=== PATIENT | male | born 1945 | race African-American/Black ===

== ENCOUNTER 2016-10-02 12:14 | Inpatient (IN) | payer MEDICARE, OTHER ==
[~2016-10-02] VITALS: Ht 182.9 cm; Wt 79.0 kg
[~2016-10-02 12:14] MED LIST: CLOP75 PO; COMP10 PO; GABA-531 PO; ISOS30TA6 PO; MEMA10TA11 PO; METF500T4 PO; METO-323 PO; MULT1CAP32 PO; OMEP20 PO; OXCA300T PO; PERCT PO; PRAV40 PO; RAMI2.5 PO; RANO500T3 PO; SENN1TAB PO
[2016-10-02 12:40] LABS: GLUCOSE,POINT OF CARE 118 MG/DL (70-110)
[2016-10-02] MEDS ORDERED: MORPHINE SULFATE 4 MG/ML SYRINGE IVP ONE (12:45)
[2016-10-02 13:16] LABS: HEMOGLOBIN 7.8 g/dL (13.5-17.5); MEAN CORPUSCULAR HEMOGLOBIN 20.5 pg (26.0-34.0); MEAN CORPUSCULAR VOLUME 68 fL (80-100); PLATELET COUNT (AUTO) 479 K/uL (150-450); RED CELL DISTRIBUTION WIDTH 24.1 % (11.5-14.5); WHITE BLOOD COUNT (AUTO) 7.4 K/uL (4.5-11.0)
[2016-10-02 13:35] LABS: ANION GAP 8 mmol/L (8-16); CALCIUM, TOTAL 8.7 mg/dL (8.8-10.5); CARBON DIOXIDE 27 mmol/L (22-29); CHLORIDE 99 mmol/L (98-107); CREATININE 1.06 mg/dL (0.60-1.30); GLOMERULAR FILTR. RATE CALC > 60 mL/min (>60); POTASSIUM 3.9 mmol/L (3.5-5.1); SODIUM SERUM 134 mmol/L (136-145); UREA NITROGEN, BLOOD 13 mg/dL (7-18)
[2016-10-02 13:46] LABS: BAND NEUTROPHILS % (MANUAL) 2 % (1-5); BASOPHILS % (MANUAL) 2 % (0-2); EOSINOPHILS % (MANUAL) 1 % (1-6); LYMPHOCYTES % (MANUAL) 31 % (22-44); TOTAL CELLS COUNTED 100
[2016-10-02 13:47] LABS: B-TYPE NATRIURETIC PEPTIDE 38 pg/mL (0-100)
[2016-10-02 13:48] LABS: RBC MORPHOLOGY COMMENT ABNORMAL R
[2016-10-02 14:07] LABS: ALANINE AMINOTRANSFERASE 36 U/L (12-78); ALBUMIN 3.8 g/dL (3.4-5.0); ASPARTATE AMINOTRANSFERASE 42 U/L (15-37); BILIRUBIN,TOTAL 0.5 mg/dL (0.1-1.0); CREATINE KINASE MB 1.7 ng/mL (0-5); CREATINE KINASE, TOTAL 149 U/L (39-308); TOTAL PROTEIN, SERUM 7.2 g/dL (6.4-8.2)
[2016-10-02] MEDS ORDERED: HYDROCODONE/ACETAMINOPHEN 5-325 MG TABLET PO PRN (14:45)
[2016-10-02] MEDS ORDERED: ACETAMINOPHEN 325 MG TABLET PO PRN ×2 (14:45→19:30)
[2016-10-02] MEDS ORDERED: MORPHINE SULFATE 4 MG/ML SYRINGE IVP PRN (14:45)
[2016-10-02 15:50] VITALS: BP 151/82
[2016-10-02] MEDS ORDERED: PNEUMOCOCCAL VACCINE POLYVALENT 0.5 ML VIAL [PPSV23] IM ONE (17:00)
[2016-10-02] MEDS ORDERED: DEXTROSE 50%-WATER 25 GM/50 ML SYRINGE IVP PRN ×2 (17:30→18:00)
[2016-10-02] MEDS: SENNA/DOCUSATE SODIUM 187-50 MG TABLET PO SCH ×2 (17:39→20:58)
[2016-10-02] MEDS: PROCHLORPERAZINE MALEATE 10 MG TABLET PO SCH ×2 (17:39→20:59)
[2016-10-02] MEDS: OXcarbazepine 300 MG TABLET PO SCH ×2 (17:39→20:58)
[2016-10-02] MEDS ORDERED: INSULIN ASPART 100 UNITS/ML SQ PRN (18:00)
[2016-10-02] MEDS ORDERED: NITROGLYCERIN 2% (1 GM=INCH) PACKET TP PRN (19:30)
[2016-10-02] MEDS ORDERED: ONDANSETRON HCL 4 MG/2 ML VIAL IVP PRN (19:30)
[2016-10-02] MEDS ORDERED: NITROGLYCERIN 0.4 MG SUBLINGUAL TABLET #25 SL PRN (19:30)
[2016-10-02 19:41] LABS: GLUCOSE COMMENT 1 Received Meds; GLUCOSE,POINT OF CARE 108 MG/DL (70-110)
[2016-10-02 19:53] VITALS: BP 147/78
[2016-10-02] MEDS: RANOLAZINE 500 MG SR TABLET PO SCH (20:59)
[2016-10-02] MEDS: METOPROLOL SUCCINATE 25 MG ER TABLET PO SCH (20:59)
[2016-10-02] MEDS: GABAPENTIN 300 MG CAPSULE PO SCH (20:59)
[2016-10-02 23:50] VITALS: BP 117/63
[2016-10-03] VITALS (24 sets, daily range): BP systolic 115–177; BP diastolic 67–101
[2016-10-03 04:34] LABS: HEMATOCRIT 24.8 % (41-53); HEMOGLOBIN 7.6 g/dL (13.5-17.5); MEAN CORPUSCULAR HGB CONC 30.5 G/dL (31.0-37.0); MEAN CORPUSCULAR VOLUME 69 fL (80-100); PLATELET COUNT (AUTO) 463 K/uL (150-450); RED BLOOD CELL COUNT(AUTO) 3.59 MIL/uL (4.50-5.90); RED CELL DISTRIBUTION WIDTH 24.1 % (11.5-14.5)
[2016-10-03 04:46] LABS: ANION GAP 7 mmol/L (8-16); CALCIUM, TOTAL 8.4 mg/dL (8.8-10.5); CARBON DIOXIDE 26 mmol/L (22-29); CHLORIDE 100 mmol/L (98-107); CHOL/HDL RATIO 2.1 (4.2-7.3); CREATININE 0.86 mg/dL (0.60-1.30); GLOMERULAR FILTR. RATE CALC > 60 mL/min (>60); POTASSIUM 3.9 mmol/L (3.5-5.1); SODIUM SERUM 133 mmol/L (136-145); UREA NITROGEN, BLOOD 12 mg/dL (7-18)
[2016-10-03 05:38] LABS: BAND NEUTROPHILS % (MANUAL) 1 % (1-5); BASOPHILS % (MANUAL) 1 % (0-2); EOSINOPHILS % (MANUAL) 1 % (1-6); LYMPHOCYTES % (MANUAL) 34 % (22-44); TOTAL CELLS COUNTED 100
[2016-10-03] MEDS: ISOSORBIDE MONONITRATE 30 MG ER TABLET PO SCH (08:57)
[2016-10-03] MEDS: MetFORMIN HCL 500 MG TABLET PO SCH (08:57)
[2016-10-03] MEDS: RAMIPRIL 2.5 MG CAPSULE PO SCH (08:57)
[2016-10-03] MEDS: MEMANTINE HCL 10 MG TABLET PO SCH (08:57)
[2016-10-03] MEDS: PROCHLORPERAZINE MALEATE 10 MG TABLET PO SCH ×3 (08:57→21:12)
[2016-10-03] MEDS: RANOLAZINE 500 MG SR TABLET PO SCH ×2 (08:58→21:15)
[2016-10-03] MEDS: OXcarbazepine 300 MG TABLET PO SCH ×3 (08:58→21:12)
[2016-10-03] MEDS: SENNA/DOCUSATE SODIUM 187-50 MG TABLET PO SCH ×3 (08:58→21:12)
[2016-10-03] MEDS ORDERED: CLOPIDOGREL BISULFATE 75 MG TABLET PO SCH (09:00)
[2016-10-03] MEDS ORDERED: PANTOPRAZOLE SODIUM 40 MG DR TABLET PO SCH (09:00)
[2016-10-03] MEDS: MORPHINE SULFATE 4 MG/ML SYRINGE IVP PRN ×3 (09:01→23:29)
[2016-10-03] MEDS: PANTOPRAZOLE SODIUM 40 MG/VIAL IVP SCH (09:30)
[2016-10-03] MEDS: GABAPENTIN 300 MG CAPSULE PO SCH ×2 (09:30→21:43)
[2016-10-03] MEDS ORDERED: SODIUM CHLORIDE 0.9% 250 ML IV ONE (14:30)
[2016-10-03] MEDS: PRAVASTATIN SODIUM 40 MG TABLET PO SCH (14:34)
[2016-10-03 18:12] LABS: GLUCOSE,POINT OF CARE 109 MG/DL (70-110)
[2016-10-03] MEDS ORDERED: SODIUM CHLORIDE 0.9% 1,000 ML IV ONE (19:43)
[2016-10-03] MEDS: METOPROLOL SUCCINATE 25 MG ER TABLET PO SCH (21:12)
[2016-10-04] MEDS ORDERED: PROPOFOL 1% 20 ML VIAL IVP ONE (00:35)
[2016-10-04] MEDS ORDERED: LIDOCAINE HCL/PF 2% 5 ML VIAL IM ONE (00:35)
[2016-10-04 04:26] VITALS: BP 148/65
[2016-10-04 06:27] LABS: HEMATOCRIT 30.7 % (41-53); HEMOGLOBIN 9.7 g/dL (13.5-17.5); MEAN CORPUSCULAR HEMOGLOBIN 22.9 pg (26.0-34.0); MEAN CORPUSCULAR HGB CONC 31.7 G/dL (31.0-37.0); MEAN CORPUSCULAR VOLUME 72 fL (80-100); PLATELET COUNT (AUTO) 401 K/uL (150-450); RED BLOOD CELL COUNT(AUTO) 4.24 MIL/uL (4.50-5.90); RED CELL DISTRIBUTION WIDTH 26.2 % (11.5-14.5); WHITE BLOOD COUNT (AUTO) 8.5 K/uL (4.5-11.0)
[2016-10-04 07:23] LABS: ALANINE AMINOTRANSFERASE 42 U/L (12-78); ALBUMIN 3.4 g/dL (3.4-5.0); ANION GAP 10 mmol/L (8-16); ASPARTATE AMINOTRANSFERASE 45 U/L (15-37); BILIRUBIN,TOTAL 0.6 mg/dL (0.1-1.0); CALCIUM, TOTAL 8.5 mg/dL (8.8-10.5); CARBON DIOXIDE 23 mmol/L (22-29); CHLORIDE 98 mmol/L (98-107); CREATININE 0.72 mg/dL (0.60-1.30); GLOMERULAR FILTR. RATE CALC > 60 mL/min (>60); POTASSIUM 4.2 mmol/L (3.5-5.1); SODIUM SERUM 131 mmol/L (136-145); TOTAL PROTEIN, SERUM 6.6 g/dL (6.4-8.2); UREA NITROGEN, BLOOD 6 mg/dL (7-18)
[2016-10-04 07:48] VITALS: BP 152/98
[2016-10-04] MEDS: MetFORMIN HCL 500 MG TABLET PO SCH (08:00)
[2016-10-04] MEDS: PRAVASTATIN SODIUM 40 MG TABLET PO SCH (09:00)
[2016-10-04] MEDS: PROCHLORPERAZINE MALEATE 10 MG TABLET PO SCH ×3 (09:00→21:15)
[2016-10-04] MEDS: ISOSORBIDE MONONITRATE 30 MG ER TABLET PO SCH (09:00)
[2016-10-04] MEDS: OXcarbazepine 300 MG TABLET PO SCH ×3 (09:00→21:14)
[2016-10-04] MEDS: GABAPENTIN 300 MG CAPSULE PO SCH ×2 (09:00→21:15)
[2016-10-04] MEDS: RAMIPRIL 2.5 MG CAPSULE PO SCH (09:00)
[2016-10-04] MEDS: MEMANTINE HCL 10 MG TABLET PO SCH (09:00)
[2016-10-04] MEDS: SENNA/DOCUSATE SODIUM 187-50 MG TABLET PO SCH ×3 (09:00→21:15)
[2016-10-04] MEDS: PANTOPRAZOLE SODIUM 40 MG/VIAL IVP SCH ×2 (09:00→21:15)
[2016-10-04] MEDS: RANOLAZINE 500 MG SR TABLET PO SCH ×2 (09:00→21:14)
[2016-10-04] MEDS: AmLODIPine BESYLATE 5 MG TABLET PO SCH (09:19)
[2016-10-04 09:22] LABS: BASOPHILS % (MANUAL) 1 % (0-2); LYMPHOCYTES % (MANUAL) 34 % (22-44); RBC MORPHOLOGY COMMENT ABNORMAL R; TOTAL CELLS COUNTED 100
[2016-10-04] MEDS ORDERED: SODIUM CHLORIDE 0.9% 1,000 ML IV ONE (11:14)
[2016-10-04] MEDS ORDERED: SODIUM CHLORIDE 0.9% 1,000 ML IV SCH (11:30)
[2016-10-04] MEDS ORDERED: MIDAZOLAM HCL 5 MG/ML VIAL ONE (11:31)
[2016-10-04] MEDS ORDERED: FentaNYL CITRATE-PF 100 MCG/2 ML VIAL ONE (11:31)
[2016-10-04] MEDS: SUCRALFATE 1 GM/10 ML SUSPENSION UDCUP PO SCH ×3 (13:00→21:15)
[2016-10-04 15:41] VITALS: BP 146/86
[2016-10-04 19:38] VITALS: BP 150/81
[2016-10-04] MEDS: METOPROLOL SUCCINATE 25 MG ER TABLET PO SCH (21:15)
[2016-10-04] MEDS ORDERED: TEMAZEPAM 15 MG CAPSULE PO ONE (22:15)
[2016-10-05 00:26] VITALS: BP 115/51
[2016-10-05 04:18] VITALS: BP 109/56
[2016-10-05 07:10] VITALS: BP 122/65
[2016-10-05 07:52] LABS: HEMATOCRIT 34.2 % (41-53); HEMOGLOBIN 10.7 g/dL (13.5-17.5); MEAN CORPUSCULAR HEMOGLOBIN 22.5 pg (26.0-34.0); MEAN CORPUSCULAR HGB CONC 31.4 G/dL (31.0-37.0); MEAN CORPUSCULAR VOLUME 72 fL (80-100); PLATELET COUNT (AUTO) 409 K/uL (150-450); RED BLOOD CELL COUNT(AUTO) 4.77 MIL/uL (4.50-5.90); WHITE BLOOD COUNT (AUTO) 13.1 K/uL (4.5-11.0)
[2016-10-05 08:09] LABS: ALANINE AMINOTRANSFERASE 36 U/L (12-78); ALBUMIN 3.6 g/dL (3.4-5.0); ANION GAP 8 mmol/L (8-16); ASPARTATE AMINOTRANSFERASE 35 U/L (15-37); BILIRUBIN,TOTAL 0.9 mg/dL (0.1-1.0); CALCIUM, TOTAL 9.1 mg/dL (8.8-10.5); CARBON DIOXIDE 24 mmol/L (22-29); CHLORIDE 97 mmol/L (98-107); GLOMERULAR FILTR. RATE CALC > 60 mL/min (>60); POTASSIUM 4.5 mmol/L (3.5-5.1); SODIUM SERUM 129 mmol/L (136-145); TOTAL PROTEIN, SERUM 7.1 g/dL (6.4-8.2); UREA NITROGEN, BLOOD 5 mg/dL (7-18)
[2016-10-05] MEDS: MetFORMIN HCL 500 MG TABLET PO SCH (08:46)
[2016-10-05] MEDS: AmLODIPine BESYLATE 5 MG TABLET PO SCH (08:46)
[2016-10-05] MEDS: SENNA/DOCUSATE SODIUM 187-50 MG TABLET PO SCH (08:46)
[2016-10-05] MEDS: GABAPENTIN 300 MG CAPSULE PO SCH (08:46)
[2016-10-05] MEDS: ISOSORBIDE MONONITRATE 30 MG ER TABLET PO SCH (08:46)
[2016-10-05] MEDS: SUCRALFATE 1 GM/10 ML SUSPENSION UDCUP PO SCH (08:46)
[2016-10-05] MEDS: PANTOPRAZOLE SODIUM 40 MG/VIAL IVP SCH (08:46)
[2016-10-05] MEDS: PROCHLORPERAZINE MALEATE 10 MG TABLET PO SCH (08:46)
[2016-10-05] MEDS: MEMANTINE HCL 10 MG TABLET PO SCH (08:47)
[2016-10-05] MEDS: PRAVASTATIN SODIUM 40 MG TABLET PO SCH (08:47)
[2016-10-05] MEDS: RANOLAZINE 500 MG SR TABLET PO SCH (08:47)
[2016-10-05] MEDS: RAMIPRIL 2.5 MG CAPSULE PO SCH (08:48)
[2016-10-05] MEDS: OXcarbazepine 300 MG TABLET PO SCH (08:48)
[2016-10-05 10:09] LABS: BASOPHILS % (MANUAL) 1 % (0-2); LYMPHOCYTES % (MANUAL) 18 % (22-44); TOTAL CELLS COUNTED 100
[2016-10-05 10:14] LABS: RBC MORPHOLOGY COMMENT ABNORMAL R
[2016-10-05 15:02] LABS: GLUCOSE,POINT OF CARE 108 MG/DL (70-110)
[2016-10-05 15:02] LABS: GLUCOSE,POINT OF CARE 121 MG/DL (70-110)
[2016-10-05 15:02] LABS: GLUCOSE COMMENT 1 Received Meds; GLUCOSE,POINT OF CARE 141 MG/DL (70-110)
[2016-10-05 15:02] LABS: GLUCOSE,POINT OF CARE 127 MG/DL (70-110)
[2016-10-05 15:16] LABS: GLUCOSE,POINT OF CARE 125 MG/DL (70-110)
[2016-10-05 15:16] LABS: GLUCOSE,POINT OF CARE 112 MG/DL (70-110)
[2016-10-05 15:16] LABS: GLUCOSE,POINT OF CARE 99 MG/DL (70-110)
[2016-10-05 15:21] LABS: GLUCOSE COMMENT 1 Received Meds; GLUCOSE,POINT OF CARE 143 MG/DL (70-110)
== END 2016-10-05 10:45 | disposition left against medical advice (07) | DRG 302 ==
LOC: EMS 12:16 → 5S 14:36 → 5N 19:00
PROVIDERS: ADMIT Internal Medicine; ATTEND Internal Medicine
PROC: 30233N1 Transfusion of Nonautologous Red Blood Cells into Peripheral Vein, Percutaneous Approach (ICD-10-PCS; 2016-10-03)
PROC: 0DB68ZX Excision of Stomach, Via Natural or Artificial Opening Endoscopic, Diagnostic (ICD-10-PCS; 2016-10-04)
PROC: 3E0234Z Introduction of Serum, Toxoid and Vaccine into Muscle, Percutaneous Approach (ICD-10-PCS; principal; 2016-10-04 12:00)
DX: I25.110 Atherosclerotic heart disease of native coronary artery with unstable angina pectoris (principal); K29.01 Acute gastritis with bleeding; K26.4 Chronic or unspecified duodenal ulcer with hemorrhage; E87.1 Hypo-osmolality and hyponatremia; J44.9 Chronic obstructive pulmonary disease, unspecified; E78.5 Hyperlipidemia, unspecified; F31.9 Bipolar disorder, unspecified; F41.9 Anxiety disorder, unspecified; I50.9 Heart failure, unspecified; F03.90 Unspecified dementia, unspecified severity, without behavioral disturbance, psychotic disturbance, mood disturbance, and anxiety; E11.40 Type 2 diabetes mellitus with diabetic neuropathy, unspecified; I11.0 Hypertensive heart disease with heart failure; D50.9 Iron deficiency anemia, unspecified; E78.00 Pure hypercholesterolemia, unspecified; K21.9 Gastro-esophageal reflux disease without esophagitis; F17.200 Nicotine dependence, unspecified, uncomplicated; Z91.19 Patient's noncompliance with other medical treatment and regimen; Z23 Encounter for immunization; Z79.899 Other long term (current) drug therapy; Z79.02 Long term (current) use of antithrombotics/antiplatelets; Z90.49 Acquired absence of other specified parts of digestive tract; Z95.5 Presence of coronary angioplasty implant and graft; Z87.11 Personal history of peptic ulcer disease
CPT/HCPCS: 82962; 83735; 86850; 86900; 86901; 86920; 88305; 88312; 90471; 93005; 93306; 96374; 99285; C9113; J2250; J2270; J2405; J2704; J3010; J3490; J7030; J7050; P9016

== ENCOUNTER 2016-11-30 18:21 | Emergency (ER) | payer MEDICARE, OTHER ==
[~2016-11-30] VITALS: Ht 182.9 cm; Wt 75.5 kg
[2016-11-30 19:12] LABS: HEMATOCRIT 29.6 % (41-53); HEMOGLOBIN 9.1 g/dL (13.5-17.5); MEAN CORPUSCULAR HEMOGLOBIN 23.3 pg (26.0-34.0); MEAN CORPUSCULAR HGB CONC 30.9 G/dL (31.0-37.0); MEAN CORPUSCULAR VOLUME 76 fL (80-100); PLATELET COUNT (AUTO) 384 K/uL (150-450); RED BLOOD CELL COUNT(AUTO) 3.91 MIL/uL (4.50-5.90); RED CELL DISTRIBUTION WIDTH 27.5 % (11.5-14.5); WHITE BLOOD COUNT (AUTO) 7.5 K/uL (4.5-11.0)
[2016-11-30 19:17] LABS: GLUCOSE,POINT OF CARE 101 MG/DL (70-110)
[2016-11-30 19:23] LABS: ANION GAP 10 mmol/L (8-16); CALCIUM, TOTAL 8.1 mg/dL (8.8-10.5); CARBON DIOXIDE 25 mmol/L (22-29); CHLORIDE 99 mmol/L (98-107); CREATININE 0.89 mg/dL (0.60-1.30); GLOMERULAR FILTR. RATE CALC > 60 mL/min (>60); POTASSIUM 3.8 mmol/L (3.5-5.1); SODIUM SERUM 134 mmol/L (136-145); UREA NITROGEN, BLOOD 13 mg/dL (7-18)
[2016-11-30] MEDS ORDERED: ACETAMINOPHEN 500 MG TABLET PO ONE (19:30)
[2016-11-30 19:35] LABS: B-TYPE NATRIURETIC PEPTIDE 12 pg/mL (0-100)
[2016-11-30 19:47] LABS: ALANINE AMINOTRANSFERASE 29 U/L (12-78); ALBUMIN 3.5 g/dL (3.4-5.0); ASPARTATE AMINOTRANSFERASE 33 U/L (15-37); BILIRUBIN,TOTAL 0.5 mg/dL (0.1-1.0); CREATINE KINASE MB 1.7 ng/mL (0-5); CREATINE KINASE, TOTAL 86 U/L (39-308); TOTAL PROTEIN, SERUM 6.6 g/dL (6.4-8.2)
[2016-11-30 19:56] LABS: BASOPHILS % (MANUAL) 1 % (0-2); LYMPHOCYTES % (MANUAL) 11 % (22-44); TOTAL CELLS COUNTED 100
[2016-11-30 19:58] LABS: RBC MORPHOLOGY COMMENT ABNORMAL R
[2016-11-30 22:50] VITALS: BP 138/78
== END 2016-12-01 00:07 | disposition home or self-care (01) ==
LOC: EMS 18:24
DX: I44.0 Atrioventricular block, first degree (principal); D64.9 Anemia, unspecified; I11.0 Hypertensive heart disease with heart failure; I50.9 Heart failure, unspecified; E11.9 Type 2 diabetes mellitus without complications; J44.9 Chronic obstructive pulmonary disease, unspecified
CPT/HCPCS: 82962; 93005; 99285

== ENCOUNTER 2016-12-10 10:34 | Emergency (ER) | payer MEDICARE, OTHER ==
[~2016-12-10] VITALS: Ht 182.9 cm; Wt 75.0 kg
[~2016-12-10 10:34] MED LIST changes: -MULT1CAP32 PO; -PERCT PO; -SENN1TAB PO
[2016-12-10 12:56] VITALS: BP 152/81
[2016-12-10] MEDS ORDERED: OxyCODONE HCL/ACETAMINOPHEN 5-325 MG TABLET PO ONE (13:00)
== END 2016-12-10 13:57 | disposition home or self-care (01) ==
LOC: EMS 10:38
DX: M79.651 Pain in right thigh (principal); I11.0 Hypertensive heart disease with heart failure; I50.9 Heart failure, unspecified; E11.9 Type 2 diabetes mellitus without complications; J44.9 Chronic obstructive pulmonary disease, unspecified
CPT/HCPCS: 93970; 99284

== ENCOUNTER 2016-12-11 14:05 | Emergency (ER) | payer MEDICARE, OTHER ==
[~2016-12-11] VITALS: Ht 182.9 cm; Wt 75.0 kg
[2016-12-11 14:27] LABS: GLUCOSE,POINT OF CARE 111 MG/DL (70-110)
[2016-12-11 15:14] LABS: EOSINOPHILS % (AUTO) 0.3 % (1.0-6.0); HEMATOCRIT 36.1 % (41-53); HEMOGLOBIN 11.1 g/dL (13.5-17.5); LYMPHOCYTES # (AUTO) 2.2 K/uL (1.0-4.8); LYMPHOCYTES % (AUTO) 25.7 % (22.0-44.0); MEAN CORPUSCULAR HGB CONC 30.8 G/dL (31.0-37.0); MEAN CORPUSCULAR VOLUME 78 fL (80-100); MONOCYTES # (AUTO) 1.2 K/uL (0.1-1.0); MONOCYTES % (AUTO) 14.4 % (2.0-9.0); NEUTROPHILS # (AUTO) 5.1 K/uL (1.8-7.7); NEUTROPHILS % (AUTO) 59.6 % (40.0-70.0); PLATELET COUNT (AUTO) 559 K/uL (150-450); RED BLOOD CELL COUNT(AUTO) 4.64 MIL/uL (4.50-5.90); RED CELL DISTRIBUTION WIDTH 26.2 % (11.5-14.5); WHITE BLOOD COUNT (AUTO) 8.6 K/uL (4.5-11.0)
[2016-12-11 15:22] LABS: PROTHROMBIN TIME 10.1 SEC (9.4-11.6)
[2016-12-11 15:35] LABS: ANION GAP 12 mmol/L (8-16); CALCIUM, TOTAL 9.5 mg/dL (8.8-10.5); CARBON DIOXIDE 26 mmol/L (22-29); CHLORIDE 96 mmol/L (98-107); CREATININE 0.92 mg/dL (0.60-1.30); GLOMERULAR FILTR. RATE CALC > 60 mL/min (>60); SODIUM SERUM 134 mmol/L (136-145); UREA NITROGEN, BLOOD 9 mg/dL (7-18)
[2016-12-11 15:41] LABS: ALANINE AMINOTRANSFERASE 34 U/L (12-78); ALBUMIN 4.4 g/dL (3.4-5.0); ASPARTATE AMINOTRANSFERASE 42 U/L (15-37); BILIRUBIN,TOTAL 0.7 mg/dL (0.1-1.0); TOTAL PROTEIN, SERUM 8.4 g/dL (6.4-8.2)
[2016-12-11] MEDS ORDERED: ASPIRIN 81 MG CHEWABLE TABLET PO ONE (15:45)
[2016-12-11] MEDS ORDERED: ONDANSETRON HCL 4 MG/2 ML VIAL IVP ONE (16:00)
[2016-12-11] MEDS ORDERED: NITROGLYCERIN 2% (1 GM=INCH) PACKET TP ONE (16:00)
[2016-12-11] MEDS ORDERED: MORPHINE SULFATE 4 MG/ML SYRINGE IVP ONE ×2 (16:00→19:15)
[2016-12-11 16:04] LABS: B-TYPE NATRIURETIC PEPTIDE 28 pg/mL (0-100)
[2016-12-11 16:36] LABS: RBC MORPHOLOGY COMMENT ABNORMAL RBC MORPH
[2016-12-11] MEDS ORDERED: DEXTROSE 50%-WATER 25 GM/50 ML SYRINGE IVP PRN ×2 (17:00→21:30)
[2016-12-11] MEDS ORDERED: ACETAMINOPHEN 325 MG TABLET PO PRN ×2 (17:00→21:30)
[2016-12-11] MEDS ORDERED: 0.9% SODIUM CHLORIDE 10 ML SYRINGE IVP PRN (17:00)
[2016-12-11] MEDS ORDERED: INSULIN ASPART 100 UNITS/ML SQ PRN ×2 (17:00→21:30)
[2016-12-11] MEDS ORDERED: ONDANSETRON HCL 4 MG/2 ML VIAL IVP PRN ×2 (17:00→21:30)
[2016-12-11 18:12] LABS: GLUCOSE,POINT OF CARE 106 MG/DL (70-110)
[2016-12-11] MEDS ORDERED: ALBUTEROL SULFATE 2.5 MG/0.5 ML NEB SOLUTION NEB SCH (19:00)
[2016-12-11] MEDS ORDERED: IPRATROPIUM BROMIDE 0.5 MG/2.5 ML NEB SOLUTION NEB SCH (19:00)
[2016-12-11] MEDS ORDERED: OxyCODONE HCL/ACETAMINOPHEN 5-325 MG TABLET PO ONE (20:00)
[2016-12-11] MEDS ORDERED: PRAVASTATIN SODIUM 20 MG TABLET PO SCH (21:30)
[2016-12-11] MEDS ORDERED: MORPHINE SULFATE 2 MG/ML SYRINGE IVP PRN (21:30)
[2016-12-11] MEDS ORDERED: MAGNESIUM HYDROXIDE SUSPENSION 30 ML UDCUP PO PRN (21:30)
[2016-12-11] MEDS ORDERED: OxyCODONE HCL/ACETAMINOPHEN 5-325 MG TABLET PO PRN (21:30)
[2016-12-11] MEDS ORDERED: ALBUTEROL SULFATE 2.5 MG/0.5 ML NEB SOLUTION NEB PRN (21:30)
[2016-12-12] MEDS: HEPARIN SODIUM,PORCINE 5,000 UNITS/ML VIAL SQ SCH ×2 (01:18→07:40)
[2016-12-12 06:27] LABS: HEMATOCRIT 31.5 % (41-53); HEMOGLOBIN 9.9 g/dL (13.5-17.5); MEAN CORPUSCULAR HEMOGLOBIN 24.2 pg (26.0-34.0); MEAN CORPUSCULAR HGB CONC 31.3 G/dL (31.0-37.0); MEAN CORPUSCULAR VOLUME 77 fL (80-100); PLATELET COUNT (AUTO) 454 K/uL (150-450); RED BLOOD CELL COUNT(AUTO) 4.07 MIL/uL (4.50-5.90); WHITE BLOOD COUNT (AUTO) 7.9 K/uL (4.5-11.0)
[2016-12-12 06:58] LABS: ALANINE AMINOTRANSFERASE 25 U/L (12-78); ALBUMIN 3.8 g/dL (3.4-5.0); ANION GAP 9 mmol/L (8-16); ASPARTATE AMINOTRANSFERASE 35 U/L (15-37); BILIRUBIN,TOTAL 0.8 mg/dL (0.1-1.0); CALCIUM, TOTAL 8.7 mg/dL (8.8-10.5); CARBON DIOXIDE 25 mmol/L (22-29); CHLORIDE 97 mmol/L (98-107); CREATININE 0.76 mg/dL (0.60-1.30); GLOMERULAR FILTR. RATE CALC > 60 mL/min (>60); POTASSIUM 4.1 mmol/L (3.5-5.1); SODIUM SERUM 131 mmol/L (136-145); TOTAL PROTEIN, SERUM 7.4 g/dL (6.4-8.2); UREA NITROGEN, BLOOD 9 mg/dL (7-18)
[2016-12-12 07:31] LABS: BAND NEUTROPHILS % (MANUAL) 2 % (1-5); LYMPHOCYTES % (MANUAL) 28 % (22-44); REACTIVE LYMPHOCYTES 7 % (0-0); TOTAL CELLS COUNTED 100
[2016-12-12 07:41] LABS: GLUCOSE COMMENT 1 Doctor Notified; GLUCOSE,POINT OF CARE 120 MG/DL (70-110)
[2016-12-12 08:30] VITALS: BP 130/80
[2016-12-12] MEDS ORDERED: PANTOPRAZOLE SODIUM 40 MG DR TABLET PO SCH (09:00)
[2016-12-12] MEDS ORDERED: CLOPIDOGREL BISULFATE 75 MG TABLET PO SCH (09:00)
[2016-12-12] MEDS ORDERED: ASPIRIN 81 MG CHEWABLE TABLET PO SCH (09:00)
[2016-12-12] MEDS ORDERED: DOCUSATE SODIUM 100 MG CAPSULE PO SCH (09:00)
== END 2016-12-12 09:04 | disposition home or self-care (01) ==
LOC: EMS 14:07
DX: R07.9 Chest pain, unspecified (principal); F17.210 Nicotine dependence, cigarettes, uncomplicated; J44.9 Chronic obstructive pulmonary disease, unspecified; F41.9 Anxiety disorder, unspecified; F31.9 Bipolar disorder, unspecified; I50.9 Heart failure, unspecified; E11.9 Type 2 diabetes mellitus without complications; I10 Essential (primary) hypertension; F20.9 Schizophrenia, unspecified; Z79.01 Long term (current) use of anticoagulants
CPT/HCPCS: 36415; 71010; 80053; 82962; 83880; 84484; 85025; 85610; 85730; 93005; 94640; 96372; 96374; 96375; 96376; 99285; 99406; J1644; J2270; J2405